=== PATIENT | female | born 1965 | race Caucasian/White ===

== ENCOUNTER 2021-03-03 16:06 | Emergency (ER) | payer OTHER ==
[~2021-03-03] VITALS: Ht 167.6 cm; Wt 82.6 kg
[2021-03-03 16:15] VITALS: BP 134/65
--- NOTE | 2021-03-03 16:30 | NUR ---
PATIENT TAKEN TO XRAY AT THIS TIME WITH PUFF IRONER
[2021-03-03] MEDS ORDERED: IBUP-2213 PO (17:53)
[2021-03-03] MEDS ORDERED: KETOROLAC 30 MG/ML VIAL IM ONE (17:55)
[2021-03-03 18:08] VITALS: BP 134/65
--- NOTE | 2021-03-03 18:08 | NUR ---
55 Y/O FEMALE FROM HOME STATES SHE IS HAVING ACUTE ON CHRONIC RIGHT SHOULDER PAIN RADIATING TO RIGHT ARM, HAS BEEN GOING ON FOR 3 YEARS BUT IT GETTING WORSE, PT STATES SHE IS UNABLE TO SLEEP AT NIGHT D/T PAIN NO PMH ALLERGIES: PENECILLIN
== END 2021-03-03 18:09 | disposition home or self-care (01) ==
LOC: MED 16:06
DX: M25.511 Pain in right shoulder (principal); X58.XXXA Exposure to other specified factors, initial encounter; Y93.89 Activity, other specified; Y92.89 Other specified places as the place of occurrence of the external cause; Y99.8 Other external cause status
CPT/HCPCS: 73030; 96372; 99283; J1885